=== PATIENT | female | born 1965 | race Two or more races ===

== ENCOUNTER 2025-06-12 13:04 | Outpatient (AMB) | payer MEDICAID, SELFPAY ==
--- NOTE | 2025-06-12 13:08 | ORTHONT_ITS ---
Vital signs 06/12/25 13:16 Height 1.63 m Height Method Stated Weight 71.242 kg Weight Measurement Method Standing Scale BMI 26.9 BP 125/71 Blood Pressure Source Automatic Cuff Blood Pressure Location Left Upper Arm Position Sitting Respiration 20 Pulse 71 Pulse Source Monitor Temp 97.8 F Temp Source Temporal Artery Scan Pulse Oximetry (%) 98 Oxygen Delivery Method Room Air Med/Allergies Allergies & Medications Allergies gabapentin Allergy (Verified 06/12/25 13:17) oxycodone Allergy (Verified 06/12/25 13:17) Penicillins Allergy (Verified 06/12/25 13:17) Medication Reconciliation acyclovir 400 mg tablet 400 mg PO QDAY 06/12/25 [History Confirmed 06/12/25] atorvastatin 40 mg tablet 40 mg PO QDAY 06/12/25 [History Confirmed 06/12/25] benazepril 10 mg tablet 10 mg PO QDAY 06/12/25 [History Confirmed 06/12/25] cetirizine 10 mg tablet 10 mg PO QDAY PRN 06/12/25 [History Confirmed 06/12/25] cholecalciferol (vitamin D3) 25 mcg (1,000 unit) capsule 25 mcg PO QDAY 06/12/25 [History Confirmed 06/12/25] cyclobenzaprine 10 mg tablet 10 mg PO HS 06/12/25 [History Confirmed 06/12/25] desmopressin 10 mcg/spray (0.1 mL) nasal spray (non-refrigerated) spray intranasal 06/12/25 [History Confirmed 06/12/25] empagliflozin 25 mg tablet (Jardiance) 25 mg PO QAM 06/12/25 [History Confirmed 06/12/25] levothyroxine 75 mcg capsule 75 mcg PO QDAY 06/12/25 [History Confirmed 06/12/25] Exam Exam Patient is in no acute distress and is cooperative with the examination today. Breathing is nonlabored. In no respiratory distress. Bilateral extremities were evaluated and demonstrates sensation intact to light touch. Palpable pedal pulses are present. No significant edema is present. Bilateral hips were examined. The patient has no pain with log roll of the hips. Internal rotation to 30 degrees and external rotation to 30 degrees is painless. Negative FADIR. The left knee was examined. The left knee is in varus alignment. Range of motion from 0-115 degrees. Knee is stable to varus and valgus as well as AP translation with <5mm. Patient has a negative McMurrays. There is no pain with patellofemoral compression and no crepitus noted. The knee is tender to palpation medially. The right knee was also examined. The right knee is in varus alignment. Range of motion from 0-120 degrees. Knee is stable to varus and valgus as well as AP translation with <5mm. Patient has a negative McMurrays. There is no pain with patellofemoral compression and no crepitus noted. The knee is tender to palpation medially. Assessment and Plan Problem List (1) Degenerative arthritis of knee, bilateral: Status: Acute Plan: Patient is a 51-year-old female with bilateral knee pain and bilateral knee arthritis. We discussed different treatment options. I would like to see weightbearing x-rays. She had recent back surgery. She reports the knee pain is quite excruciating and she is using a cane. We will see her back after x- rays are done Office Procedures GNS Level of Care Nursing/Assessment Patient Status: Initial/New Patient Nursing Assessment/Reassesment: Medication Reconciliation, Update PMH in EMR and Vital Signs Coordination of Care: Complex Care and Chronic Disease 1-5, Education Complex Pt/Fam, Consent,records obtained, informed consent, 1 Ins Authorization, Lab and Imaging orders, Results/Orders obtained and Staff clarify orders New Patient Charge New Patient Point Assignment: 1124 New Patient Point Charge: CONSTRUCTION SITE MANAGER Level 4 ([id number]) MA Intake Visit Data Collection New Patient or Established: New Patient (never been to [facility]) Reason for Visit:: LEFT KNEE PAIN Seen by Clinical Staff ONLY (RN/MA): No [facility] Required: No PCP or OBGYN visit in last 3 months: Yes Hx Now: No Do You Feel Safe at Home: Yes Authorities Contacted: N/A Questionairres Past Medical History Past Medical History Have you ever been diagnosed with any of the following: Respiratory Problems Cough: No Smoking: No Smoking Cessation Counseling: No Smoking Exposure: No Subjective Visit Visit for: new patient and knee (LEFT) Immunization / Flu Flu Vaccine in the Last 12 Months: No Flu Vaccine Exclusion Criteria: No Exclusion Criteria History of Present Illness Chief complaint: Bilateral knee pain worse on the left Date of injury / onset of symptoms: 10 YEARS Carly is a pleasant 51-year-old female with left knee pain greater than right knee pain. This Has been ongoing for quite a while. We discussed different treatment options. She has had 2 injections in the past. Personal History Occupation: CAREGIVER BMI Counceling provided: Yes Pain Pain level (0-10): 5 Pain duration: ALL DAY Pain location: anterior Pain quality: aching and other (specify) (SWELLING) Associated signs & symptoms: numbness and weakness Ambulatory data Ambulatory device: cane Treatments Number of previous injections: 2 Improvement with previous injections: Yes Number of Physical Therapy sessions: 0 Improvement with PT: No Improvement with NSAIDS: no (NAPROXEN) Review of Systems Review of Systems: All systems negative unless otherwise noted in HPI.
[2025-06-12 13:16] VITALS: BP 125/71; PULSE 71; RESP 20; TEMP 36.6; O2SAT 98; BMI 26.9
--- NOTE | 2025-06-12 13:18 | XR_ITS ---
Examination: Bilateral knees 2 views Right lateral knee left lateral knee 2 views Bilateral axial knees single view TECHNIQUE: Bilateral AP knees standing single view, bilateral PA knees standing single view flexion Standing right lateral knee left lateral knee 2 views Bilateral axial knees single view total 5 views Date and time: June 12, 2025 1337 hours INDICATIONS: Bilateral knee pain beginning 10 years ago. FINDINGS: Bilateral moderate to advanced narrowing medial joint spaces Bilateral moderate to advanced osteoarthritis patellofemoral joints No fractures IMPRESSION: Bilateral moderate to advanced narrowing medial joint spaces
--- NOTE | 2025-06-12 13:19 | XR_ITS ---
Examination:Right hip AP, lateral, AP pelvis 3 views Technique: Hip AP lateral, AP pelvis, 3 views Exam date and time:June 12, 2025 1329 hours INDICATIONS: Right hip pain beginning 3 years ago. FINDINGS: No right hip fracture or dislocation Moderate bilateral hip osteoarthritis Bones of the pelvis intact IMPRESSION: Moderate bilateral hip osteoarthritis.
== END 2025-06-12 13:24 | disposition home or self-care (01) ==
PROVIDERS: PCP Student in an Organized Health Care Education/Training Program; Referring Provider Student in an Organized Health Care Education/Training Program; Supervising Provider Orthopaedic Surgery Adult Reconstructive Orthopaedic Surgery; Visit Provider Orthopaedic Surgery Adult Reconstructive Orthopaedic Surgery
DX: M17.0 Bilateral primary osteoarthritis of knee (principal); M25.562 Pain in left knee; M25.561 Pain in right knee; M16.0 Bilateral primary osteoarthritis of hip
CPT/HCPCS: 73502; 73564; 99204; G0463

== ENCOUNTER 2025-07-03 09:43 | Outpatient (AMB) | payer MEDICAID, SELFPAY ==
[2025-07-03 10:15] VITALS: BP 122/77; PULSE 64; RESP 20; TEMP 36.6; O2SAT 96; BMI 26.7
--- NOTE | 2025-07-03 10:15 | ORTHONT_ITS ---
Vital signs 07/03/25 10:15 Height 1.63 m Height Method Stated Weight 70.987 kg Weight Measurement Method Standing Scale BMI 26.7 BP 122/77 Blood Pressure Source Automatic Cuff Blood Pressure Location Left Upper Arm Position Sitting Respiration 20 Pulse 64 Pulse Source Monitor Temp 97.9 F Temp Source Temporal Artery Scan Pulse Oximetry (%) 96 Oxygen Delivery Method Room Air Med/Allergies Allergies & Medications Allergies gabapentin Allergy (Verified 07/03/25 10:16) oxycodone Allergy (Verified 07/03/25 10:16) Penicillins Allergy (Verified 07/03/25 10:16) Medication Reconciliation acyclovir 400 mg tablet 400 mg PO QDAY 06/12/25 [History Confirmed 07/03/25] atorvastatin 40 mg tablet 40 mg PO QDAY 06/12/25 [History Confirmed 07/03/25] benazepril 10 mg tablet 10 mg PO QDAY 06/12/25 [History Confirmed 07/03/25] cetirizine 10 mg tablet 10 mg PO QDAY PRN 06/12/25 [History Confirmed 07/03/25] cholecalciferol (vitamin D3) 25 mcg (1,000 unit) capsule 25 mcg PO QDAY 06/12/25 [History Confirmed 07/03/25] cyclobenzaprine 10 mg tablet 10 mg PO HS 06/12/25 [History Confirmed 07/03/25] desmopressin 10 mcg/spray (0.1 mL) nasal spray (non-refrigerated) spray intranasal 06/12/25 [History Confirmed 07/03/25] empagliflozin 25 mg tablet (Jardiance) 25 mg PO QAM 06/12/25 [History Confirmed 07/03/25] levothyroxine 75 mcg capsule 75 mcg PO QDAY 06/12/25 [History Confirmed 07/03/25] meloxicam 7.5 mg tablet 7.5 mg PO QDAY #45 tabs 07/03/25 [Rx] Exam Exam Patient is in no acute distress and is cooperative with the examination today. Breathing is nonlabored. In no respiratory distress. Bilateral extremities were evaluated and demonstrates sensation intact to light touch. Palpable pedal pulses are present. No significant edema is present. Bilateral hips were examined. The patient has no pain with log roll of the hips. Internal rotation to 30 degrees and external rotation to 30 degrees is painless. Negative FADIR. The left knee was examined. The left knee is in varus alignment. Range of motion from 0-115 degrees. Knee is stable to varus and valgus as well as AP translation with <5mm. Patient has a negative McMurrays. There is no pain with patellofemoral compression and no crepitus noted. The knee is tender to palpation medially. The right knee was also examined. The right knee is in varus alignment. Range of motion from 0-120 degrees. Knee is stable to varus and valgus as well as AP translation with <5mm. Patient has a negative McMurrays. There is no pain with patellofemoral compression and no crepitus noted. The knee is tender to palpation medially. Bilateral hip x-rays demonstrate mild to moderate arthritis. Knee films also demonstrate moderate left knee arthritis Assessment and Plan Problem List (1) Degenerative arthritis of knee, bilateral: Status: Acute Plan: Patient is a 51-year-old female with bilateral knee pain and bilateral knee arthritis. We discussed different treatment options. she has mild to moderate arthritis of her bilateral hips as well as moderate arthritis of the bilateral knees. She would like a cortisone injection of the left knee as this was the most Recommend knee cortisone injection as patient would like to proceed with conservative treatment at this time. The risks and benefits of the procedure were reviewed with the patient and patient gave verbal consent to continue with the procedure. Procedure: performed by Dr. Richards Using sterile technique the left knee was thoroughly prepped with alcohol, and approximately 1 cc of Depo-Medrol 80mg/mL and 4 cc of 0.2% ropivacaine was injected without resistance into the medial tibial femoral joint space. The patient tolerated the procedure. Office Procedures GNS Level of Care Nursing/Assessment Patient Status: Established Patient Nursing Assessment/Reassesment: Medication Reconciliation, Update PMH in EMR and Vital Signs Coordination of Care: Complex Care and Chronic Disease 1-5, Education Complex Pt/Fam, Consent,records obtained, informed consent, Results/Orders obtained and Staff clarify orders Established Patient Charge Established Patient Point Assignment: 95 Established Patient Point Charge: EP Level 3 (80-115) Surgical Proc/IM SQ injection Minor Surgical Procedure: Yes (LEFT KNEE INJECTION) Medication Given Medication Given Medication Given: Yes Documented Dose Given: 1 Route: Infiitration Medication Given Medication Given Medication Given: No Medication Given Medication Given Medication Given: No Medication Given Medication Given Medication Given: Yes Documented Dose Given: 4 Route: Infiitration Office Meds methylprednisolone acetate 80 mg/mL suspension for injection Performing Provider: Segundo Richards MD Performing Location: [facility] Administered by: Segundo Richards MD on 07/03/25 10:40 Dose Route Admin Location Dispensed Lot Number Expiration Date Pack age [facility] [employer] 80 mg intra-articular 1 mL [id number] 09/14/26 [address]-7 [id number] [employer] methylprednisolone acetate 80 mg/mL suspension for injection Performing Provider: Segundo Richards MD Performing Location: [facility] Documented (not given) by: Tanja Potts on 07/03/25 11:00 Dose Route Admin Location Dispensed Lot Number Expiration Date Pack age [place] NDC [employer] 80 mg intra-articular mL ropivacaine (PF) 2 mg/mL (0.2 %) injection solution Performing Provider: Segundo Richards MD Performing Location: [facility] Documented (not given) by: Tanja Potts on 07/03/25 11:00 Dose Route Admin Location Dispensed Lot Number Expiration Date Pack age NDC NDC [employer] 20 mL Infiltration mL ropivacaine (PF) 2 mg/mL (0.2 %) injection solution Performing Provider: Segundo Richards MD Performing Location: [facility] Administered by: Segundo Richards MD on 07/03/25 10:40 Dose Route Admin Location Dispensed Lot Number Expiration Date Pack age NDC NDC [employer] 20 mL Infiltration 20 mL [id number] 11/14/27 19112-037-83 [id number] [facility] Intake Visit Data Collection New Patient or Established: Established Patient (seen at [facility] within 3 years) Reason for Visit:: XRAY/LEFT KNEE PAIN Seen by Clinical Staff ONLY (RN/MA): No Blade Worker Required: No PCP or OBGYN visit in last 3 months: Yes Hx Now: No Do You Feel Safe at Home: Yes Authorities Contacted: N/A Questionairres Past Medical History Past Medical History Have you ever been diagnosed with any of the following: Respiratory Problems Cough: No Smoking: No Smoking Cessation Counseling: No Smoking Exposure: No Subjective Visit Visit for: follow up visit, knee (LEFT) and x-rays (RESULTS) Immunization / Flu Flu Vaccine in the Last 12 Months: No Flu Vaccine Exclusion Criteria: No Exclusion Criteria History of Present Illness Chief complaint: Bilateral knee pain worse on the left Date of injury / onset of symptoms: 10 YEARS Carly is a pleasant 51-year-old female with left knee pain greater than right knee pain. This Has been ongoing for quite a while. We discussed different treatment options. She has had 2 injections in the past. Personal History Occupation: CAREGIVER BMI Counceling provided: Yes Pain Pain level (0-10): 5 Pain duration: ALL DAY Pain location: anterior Pain quality: aching and other (specify) (SWELLING) Associated signs & symptoms: numbness and weakness Ambulatory data Ambulatory device: cane Treatments Number of previous injections: 2 Improvement with previous injections: Yes Number of Physical Therapy sessions: 0 Improvement with PT: No Improvement with NSAIDS: no (NAPROXEN) Review of Systems Review of Systems: All systems negative unless otherwise noted in HPI.
== END 2025-07-03 10:46 | disposition home or self-care (01) ==
LOC: HODSRG 09:43
PROVIDERS: PCP Student in an Organized Health Care Education/Training Program; Referring Provider Student in an Organized Health Care Education/Training Program; Supervising Provider Orthopaedic Surgery Adult Reconstructive Orthopaedic Surgery; Visit Provider Orthopaedic Surgery Adult Reconstructive Orthopaedic Surgery
DX: M17.0 Bilateral primary osteoarthritis of knee (principal); M25.562 Pain in left knee; M25.561 Pain in right knee; M16.4 Bilateral post-traumatic osteoarthritis of hip
CPT/HCPCS: 20610; 99213; J1010; J2795; G0463

== ENCOUNTER 2025-10-03 09:05 | Outpatient (AMB) | payer MEDICAID, SELFPAY ==
--- NOTE | 2025-10-03 09:21 | ORTHONT_ITS ---
Vital signs 10/03/25 09:22 Height 1.63 m Height Method Stated Weight 71.242 kg Weight Measurement Method Standing Scale BMI 26.8 BP 125/73 Blood Pressure Source Automatic Cuff Blood Pressure Location Right Upper Arm Position Sitting Respiration 18 Pulse 64 Pulse Source Monitor Temp 97.7 F Temp Source Temporal Artery Scan Pulse Oximetry (%) 97 Oxygen Delivery Method Room Air Med/Allergies Allergies & Medications Allergies gabapentin Allergy (Verified 10/03/25 09:22) oxycodone Allergy (Verified 10/03/25 09:22) Penicillins Allergy (Verified 10/03/25 09:22) Medication Reconciliation acyclovir 400 mg tablet 400 mg PO QDAY 06/12/25 [History Confirmed 10/03/25] atorvastatin 40 mg tablet 40 mg PO QDAY 06/12/25 [History Confirmed 10/03/25] benazepril 10 mg tablet 10 mg PO QDAY 06/12/25 [History Confirmed 10/03/25] cetirizine 10 mg tablet 10 mg PO QDAY PRN 06/12/25 [History Confirmed 10/03/25] cholecalciferol (vitamin D3) 25 mcg (1,000 unit) capsule 25 mcg PO QDAY 06/12/25 [History Confirmed 10/03/25] cyclobenzaprine 10 mg tablet 10 mg PO HS 06/12/25 [History Confirmed 10/03/25] desmopressin 10 mcg/spray (0.1 mL) nasal spray (non-refrigerated) spray intranasal 06/12/25 [History Confirmed 10/03/25] empagliflozin 25 mg tablet (Jardiance) 25 mg PO QAM 06/12/25 [History Confirmed 10/03/25] levothyroxine 75 mcg capsule 75 mcg PO QDAY 06/12/25 [History Confirmed 10/03/25] meloxicam 7.5 mg tablet 7.5 mg PO QDAY #45 tabs 10/03/25 [Rx] Exam Exam Patient is in no acute distress and is cooperative with the examination today. Breathing is nonlabored. In no respiratory distress. Bilateral extremities were evaluated and demonstrates sensation intact to light touch. Palpable pedal pulses are present. No significant edema is present. Bilateral hips were examined. The patient has no pain with log roll of the hips. Internal rotation to 30 degrees and external rotation to 30 degrees is painless. Negative FADIR. The left knee was examined. The left knee is in varus alignment. Range of motion from 0-115 degrees. Knee is stable to varus and valgus as well as AP translation with <5mm. Patient has a negative McMurrays. There is no pain with patellofemoral compression and no crepitus noted. The knee is tender to palpation medially. The right knee was also examined. The right knee is in varus alignment. Range of motion from 0-120 degrees. Knee is stable to varus and valgus as well as AP translation with <5mm. Patient has a negative McMurrays. There is no pain with patellofemoral compression and no crepitus noted. The knee is tender to palpation medially. Bilateral hip x-rays demonstrate mild to moderate arthritis. Knee films also demonstrate moderate left knee arthritis Assessment and Plan Problem List (1) Degenerative arthritis of knee, bilateral: Status: Acute Plan: Patient is a 51-year-old female with bilateral knee pain and bilateral knee arthritis. We will try a brace for the right knee. She reports symptoms of instability and this can help with that. She would like a right hip cortisone injection and we will order one We will see her back in approximately 3 to 6 months Office Procedures GNS Level of Care Nursing/Assessment Patient Status: Established Patient Nursing Assessment/Reassesment: Medication Reconciliation, Update PMH in EMR and Vital Signs Coordination of Care: Complex Care and Chronic Disease 1-5, Education Complex Pt/Fam, Consent,records obtained, informed consent, Results/Orders obtained and Staff clarify orders Established Patient Charge Established Patient Point Assignment: 95 Established Patient Point Charge: EP Level 3 (80-115) MA Intake Visit Data Collection New Patient or Established: Established Patient (seen at [facility] within 3 years) Reason for Visit:: 3 MONTH KNEE INJECTION Seen by Clinical Staff ONLY (RN/MA): No Verbal consent obtained for Telemed visit?: No Stove Carriage Operator Required: No PCP or OBGYN visit in last 3 months: Yes Hx Now: No Do You Feel Safe at Home: Yes Authorities Contacted: N/A Questionairres Past Medical History Past Medical History Have you ever been diagnosed with any of the following: Respiratory Problems Cough: No Smoking: No Smoking Cessation Counseling: No Smoking Exposure: No Subjective Visit Visit for: follow up visit, knee (LEFT) and x-rays (RESULTS) Immunization / Flu Flu Vaccine in the Last 12 Months: No Flu Vaccine Exclusion Criteria: No Exclusion Criteria History of Present Illness Chief complaint: Bilateral knee pain worse on the left Date of injury / onset of symptoms: 10 YEARS Carly is a pleasant 51-year-old female with left knee pain greater than right knee pain. This Has been ongoing for quite a while. We discussed different treatment options. She has had 2 injections in the past. 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: BMI BMI Counceling provided: Yes Pain Pain level (0-10): 5 Pain duration: ALL DAY Pain location: outside (lateral), anterior and posterior Pain quality: sharp, dull, aching and other (specify) (SWELLING) Pain timing: increases with activity Associated signs & symptoms: numbness and weakness Ambulatory data Ambulatory device: cane Treatments Number of previous injections: 2 Improvement with previous injections: Yes Number of Physical Therapy sessions: 0 Improvement with PT: No Improvement with NSAIDS: no (NAPROXEN) Review of Systems Review of Systems: All systems negative unless otherwise noted in HPI.
[2025-10-03 09:22] VITALS: BP 125/73; PULSE 64; RESP 18; TEMP 36.5; O2SAT 97; BMI 26.8
== END 2025-10-03 09:36 | disposition home or self-care (01) ==
LOC: HODSRG 09:05
PROVIDERS: PCP Student in an Organized Health Care Education/Training Program; Referring Provider Student in an Organized Health Care Education/Training Program; Supervising Provider Orthopaedic Surgery Adult Reconstructive Orthopaedic Surgery; Visit Provider Orthopaedic Surgery Adult Reconstructive Orthopaedic Surgery
DX: M17.0 Bilateral primary osteoarthritis of knee (principal)
CPT/HCPCS: 99213; G0463